=== PATIENT | female | born 1980 | race African-American/Black ===

== ENCOUNTER 2016-11-15 22:19 | Emergency (ER) | payer OTHER ==
[~2016-11-15 22:19] MED LIST: CARAFATE1 GM PO; CIPRO500 MG PO; FLA500 PO; LAC PO; LOPERAMIDE2 MG PO; MOTRIN800 MG PO; PRILOSEC20 MG PO; ZOF4 PO
[2016-11-15 22:50] LABS: BASOPHIL % 0.4 % (0-2); PLATELET COUNT 400 x10^3mcL (130-400)
[2016-11-15 22:56] LABS: RED CELL DISTRIBUTION WIDTH 19.6 % (11.5-14.5)
[2016-11-15 23:02] LABS: CALCIUM 8.9 mg/dL (8.5-10.1); CARBON DIOXIDE 24.7 mmol/L (21-32); CHLORIDE SERUM 103 mmol/L (98-107); CREATININE SERUM 0.8 mg/dL (0.6-1.0); GFR1 > 60 mL/min; GLUCOSE SERUM 92 mg/dL (74-106); POTASSIUM SERUM 3.3 mmol/L (3.5-5.1); SODIUM SERUM 137 mmol/L (136-145)
[2016-11-15 23:05] LABS: ALBUMIN 3.8 g/dL (3.4-5.0); ALKALINE PHOSPHATASE 97 U/L (46-116); ALT/SGPT 25 U/L (14-59); AMYLASE 83 U/L (25-115); AST/SGOT 26 U/L (15-37); BILIRUBIN TOTAL 1.1 mg/dL (0.20-1.00); LIPASE 158 IU/L (73-393)
[2016-11-16 00:54] VITALS: BP 170/95
== END 2016-11-16 00:54 | disposition home or self-care (01) ==
LOC: ED 22:19
PROVIDERS: Emergency Medicine
DX: R10.30 Lower abdominal pain, unspecified (principal)
CPT/HCPCS: 83880; J1885

== ENCOUNTER 2017-07-19 14:06 | Emergency (ER) | payer OTHER ==
[~2017-07-19] VITALS: Ht 165.1 cm; Wt 109.5 kg
[2017-07-19 14:16] VITALS: Ht 165.1 cm; Wt 109.5 kg
[2017-07-19 16:03] VITALS: BP 120/76
== END 2017-07-19 16:03 | disposition home or self-care (01) ==
LOC: ED 14:06
DX: R09.89 Other specified symptoms and signs involving the circulatory and respiratory systems (principal)

== ENCOUNTER 2017-08-29 20:42 | Emergency (ER) | payer OTHER ==
[~2017-08-29] VITALS: Ht 165.1 cm; Wt 109.8 kg
[2017-08-29 21:12] VITALS: Ht 165.1 cm; Wt 109.8 kg
[2017-08-30 00:12] LABS: BASOPHIL % 0.3 % (0-2); PLATELET COUNT 373 x10^3mcL (130-400)
[2017-08-30 00:24] LABS: CALCIUM 8.6 mg/dL (8.5-10.1); CARBON DIOXIDE 24.2 mmol/L (21-32); CHLORIDE SERUM 102 mmol/L (98-107); CREATININE SERUM 0.8 mg/dL (0.6-1.0); GFR1 > 60 mL/min; GLUCOSE SERUM 104 mg/dL (74-106); SODIUM SERUM 141 mmol/L (136-145)
[2017-08-30 00:29] LABS: ALKALINE PHOSPHATASE 101 U/L (46-116); ALT/SGPT 23 U/L (14-59); AMYLASE 101 U/L (25-115); AST/SGOT 20 U/L (15-37); BILIRUBIN TOTAL 0.6 mg/dL (0.20-1.00); LIPASE 111 IU/L (73-393); TOTAL PROTEIN, SERUM 8.6 g/dL (6.4-8.2)
[2017-08-30 02:33] VITALS: BP 140/76
== END 2017-08-30 02:33 | disposition home or self-care (01) ==
LOC: ED 20:42
PROVIDERS: Specialist
DX: K29.70 Gastritis, unspecified, without bleeding (principal); K44.9 Diaphragmatic hernia without obstruction or gangrene
CPT/HCPCS: 83880; J2405; J3010; J3490; J7030

== ENCOUNTER 2018-07-16 23:34 | Emergency (ER) | payer OTHER ==
[~2018-07-16] VITALS: Ht 162.6 cm; Wt 108.4 kg
[2018-07-16 23:41] VITALS: Ht 162.6 cm; Wt 108.4 kg
[2018-07-17 01:40] VITALS: BP 114/76
== END 2018-07-17 01:35 | disposition home or self-care (01) ==
LOC: ED 23:34
DX: S29.012A Strain of muscle and tendon of back wall of thorax, initial encounter (principal); Z98.890 Other specified postprocedural states; X58.XXXA Exposure to other specified factors, initial encounter; Y93.89 Activity, other specified; Y92.89 Other specified places as the place of occurrence of the external cause; Y99.8 Other external cause status
CPT/HCPCS: J3010; Q0162

== ENCOUNTER 2019-01-20 18:41 | Emergency (ER) | payer OTHER ==
[~2019-01-20] VITALS: Ht 162.6 cm; Wt 86.2 kg
[2019-01-20 18:47] VITALS: Ht 162.6 cm; Wt 86.2 kg
[2019-01-20 19:47] LABS: BASOPHIL % 0.2 % (0-2)
[2019-01-20 19:52] LABS: PLATELET COUNT 552 x10^3mcL (130-400); RED CELL DISTRIBUTION WIDTH 19.1 % (11.5-14.5)
[2019-01-20 21:56] VITALS: BP 131/80
== END 2019-01-20 21:56 | disposition home or self-care (01) ==
LOC: ED 18:41
PROVIDERS: Emergency Medicine
DX: N93.9 Abnormal uterine and vaginal bleeding, unspecified (principal); N94.6 Dysmenorrhea, unspecified; I10 Essential (primary) hypertension; Z98.890 Other specified postprocedural states
CPT/HCPCS: 36415; J1885

== ENCOUNTER 2019-06-03 09:09 | Inpatient (IN) | payer OTHER ==
[~2019-06-03] VITALS: Ht 165.1 cm; Wt 113.9 kg
--- NOTE | 2019-06-03 09:30 | NUR ---
PT C/O EPIGASTRIC PAIN SINCE 0200 STS THAT THE PAIN IS AN CONSTANT "ACHE". PT STS THAT SHE HAS NAUSE AND DID SPIT UP BLOOD. PER PT STS THAT SHE HAS DONE THIS BEFORE DUE TO HER CHOLITIS. PT DENIES ANY DYSURIA. +BOWEL SOUNDS ALL 4 QUAD. PT DENIES ANY TEMP/BODY ACHES. PT PLACED ON CM. RESP E/U. WILL CONTINUE TO MONITOR. PT AAOX4.
--- NOTE | 2019-06-03 09:41 | NUR ---
PT DENIES ANY CHEST PAIN AT THIS TIME.
--- NOTE | 2019-06-03 09:45 | NUR ---
EKG IN PROGRESS.
--- NOTE | 2019-06-03 10:25 | NUR ---
LAB AT BEDSIDE. MEDICATED PER EMAR.
[2019-06-03 10:45] LABS: BASOPHIL % 0.3 % (0-2)
[2019-06-03 10:48] LABS: RED CELL DISTRIBUTION WIDTH 16.8 % (11.5-14.5)
[2019-06-03 10:51] LABS: PLATELET COUNT 503 x10^3mcL (130-400)
[2019-06-03 10:54] LABS: microscopic required? YES; urine erythrocyte 2+ (NEGATIVE)
[2019-06-03] MEDS ORDERED: ATENOLOL25 MG PO (12:11)
--- NOTE | 2019-06-03 12:50 | NUR ---
GAVE REPORT TO KIZZY RODRIGUEZ TO ASSUME CARE OF PT. PER KIZZY PLEASE WAIT 20 TO CLEAN ROOM IT WAS AN ISOLATION ROOM, WILL CALL WHEN READY.
--- NOTE | 2019-06-03 13:00 | NUR ---
PT VOMITED APPROX 50ML OF YELOW GREEM EMESIS. PT PROVIDED NEW EMESIS BAG. VSS. RESP E/U. WILL CONTINUE TO MONITOR.
[2019-06-03 13:18] LABS: CALCIUM 8.2 mg/dL (8.5-10.1); CARBON DIOXIDE 24.8 mmol/L (21-32); CHLORIDE SERUM 102 mmol/L (98-107); CREATININE SERUM 0.7 mg/dL (0.6-1.0); GFR1 > 60 mL/min; GLUCOSE SERUM 92 mg/dL (74-106); POTASSIUM SERUM 3.6 mmol/L (3.5-5.1); SODIUM SERUM 138 mmol/L (136-145)
[2019-06-03 13:22] LABS: ALBUMIN 3.6 g/dL (3.4-5.0); ALKALINE PHOSPHATASE 109 U/L (46-116); ALT/SGPT 14 U/L (14-59); AST/SGOT 9 U/L (15-37); BILIRUBIN TOTAL 0.87 mg/dL (0.20-1.00); TOTAL PROTEIN, SERUM 7.7 g/dL (6.4-8.2); TRIGLYCERIDES 75 mg/dL (<150)
[2019-06-03 13:24] LABS: CHOLESTEROL 132 mg/dL (<200); CHOLESTEROL/HDL RATIO 2.1; HDL CHOLESTEROL 63 mg/dL (40-60); LIPASE 2303 IU/L (73-393)
--- NOTE | 2019-06-03 13:38 | NUR ---
CONTACTED KIZZY TO SEE IF ROOM WAS READY FOR THE PT. KIZZY STS THAT THEY ARE STILL CLEANING THE ROOM AND WILL CALL BACK WHEN READY.
--- NOTE | 2019-06-03 13:49 | NUR ---
PT STS THAT SHE HAS NO NASUEA AT THIS TIME AND IS "FEELING BETTER". VSS. RESP E/U WILL CONTINUE TO MONITOR.
--- NOTE | 2019-06-03 14:05 | NUR ---
RECEIVED PT FROM ED [employer] [employer], CAME IN DUE TO NAUSEA, VOMITING AND ABDOMINAL PAIN X1 DAY. AAOX4. DENIES HEADACHE/DIZZINESS. ABLE TO FOLLOW COMMANDS. NO SOB NOTED, LUNG SOUNDS CTA. DENIES CHEST PAIN/PRESSURE. STATED THAT SHE HAS 8/10 UPPER ABDOMINAL PAIN DESCRIBED CONTRACTIONS AND INTERMITTENT. DENIES NAUSEA AT THIS TIME. BOWEL SOUNDS ACTIVE. ABDOMEN IS ROUND AND SOFT. VOIDS. IV SITE PATENT AND INTACT. SIDE RAILS UPX2. CALL LIGHT ON REACH. PRIMARY NURSE KIZZY AT BEDSIDE FOR CONTINUITY OF CARE
[2019-06-03 14:22] VITALS: BP 162/94
[2019-06-03 14:29] VITALS: Ht 165.1 cm; Wt 113.9 kg
--- NOTE | 2019-06-03 16:50 | NUR ---
EGD CONSENT SIGNED AND PT AGREEABLE TO EGD. CONSENT IN CHART. PT COMPLAINING OF SPASM LIKE PAIN TO ABD. WILL MEDICATE ACCORDING TO EMAR.
[2019-06-03 18:20] VITALS: BP 168/97
--- NOTE | 2019-06-03 18:30 | NUR ---
PT BLOOD PRESSURE 168/97, RECHECKED BLOOD PRESSURE WITH PT SITTING AT EDGE OF BED AND IS 178/108. WILL MEDICATE ACCORDING TO EMAR.
[2019-06-03] MEDS ORDERED: AMLODIPINE BESY10 M2 PO (18:35)
--- NOTE | 2019-06-03 19:30 | NUR ---
ENDORSED TO NURSE HOOKER
--- NOTE | 2019-06-03 19:41 | NUR ---
RECEIVED PT FROM PREVIOUS SHIFT. PT A/OX4. DENIES SOB ON RA. C/O "TOLERABLE" 5/10 PAIN TO ABD. STATES SHE DOES NOT WANT ANY PAIN MEDS AT THIS TIME. IV PATENT AND INFUSING LR AT 125ML/HR WITH NO S/S OF INFILTRATION. CALL LIGHT WITHIN REACH, BED IN LOW POSITION. WILL CONTINUE TO MONITOR.
[2019-06-03 21:25] VITALS: BP 164/93
--- NOTE | 2019-06-04 01:01 | NUR ---
PT RESTING IN NO ACUTE DISTRESS. RR EVEN AND UNLABORED. CALL LIGHT WITHIN REACH, BED IN LOW POSITION. WILL CONTINUE TO MONITOR.
[2019-06-04 05:18] VITALS: BP 153/90
[2019-06-04 06:58] LABS: BILIRUBIN DIRECT 0.32 mg/dL (0.0-0.2); BILIRUBIN TOTAL 1.02 mg/dL (0.20-1.00); TOTAL PROTEIN, SERUM 7.4 g/dL (6.4-8.2)
[2019-06-04 07:20] LABS: ALBUMIN 3.3 g/dL (3.4-5.0)
--- NOTE | 2019-06-04 07:30 | NUR ---
RECIEVED REPORT FROM NOC NURSE. PATIENT CURRENTLY AWAKE ALERT AND ORIENTED AND RESTING IN BED. LR INFUSING TO LAC IV AT 125/HOUR. NO REPORT OF PAIN AT THIS TIME. SAFETY PRECAUTIONS IN PLACE. BED IN THE LOW POSITION. CALL LIGHT WITHIN REACH. WILL CONTINUE TO MONITOR.
[2019-06-04 08:23] VITALS: BP 144/84
--- NOTE | 2019-06-04 13:54 | NUR ---
RECIEVED PATIENT FROM SURGERY. PATIENT AWAKE AND ORIENTED. RESPIRATIONS EVEN AND UNLABORD, REGULAR RATE. CURRENTLY SITTING UP IN BED TO EAT HER FULL LIQUID MEAL. NO REPORT OF PAIN AT THIS TIME. WILL CONTINUE TO MONITOR.
[2019-06-04 14:24] LABS: BASOPHIL % 0.6 % (0-2)
[2019-06-04 14:36] LABS: PLATELET COUNT 426 x10^3mcL (130-400); RED CELL DISTRIBUTION WIDTH 16.5 % (11.5-14.5)
[2019-06-04 14:41] LABS: CALCIUM 8.3 mg/dL (8.5-10.1); CHLORIDE SERUM 104 mmol/L (98-107); CREATININE SERUM 0.6 mg/dL (0.6-1.0); GFR1 > 60 mL/min; GLUCOSE SERUM 95 mg/dL (74-106); POTASSIUM SERUM 3.6 mmol/L (3.5-5.1); SODIUM SERUM 139 mmol/L (136-145)
--- NOTE | 2019-06-04 15:17 | NUR ---
PATIENT CURRENTLY AWAKE AND IN BED. NO REPORT OF PAIN AT THIS TIME. MOTHER AT BEDSIDE VISITING WITH PATIENT.
[2019-06-04 16:32] VITALS: BP 119/80
[2019-06-04 17:50] VITALS: BP 119/80
--- NOTE | 2019-06-04 18:16 | NUR ---
CALL MADE TO DR. ADAMSON, EXPLAINED THAT PATIENT REFUSED TO GO HOME TODAY. DR. ADAMSON NOTED THAT IS FINE. PATIENT CURRENTLY STATED THAT SHE VOMITED A LITTLE. KITCHED CALLED TO BRING PATIENT CLEAR BROTH IN ORDER TO SLOWLY TRANSITION PATIENT FROM NPO DIET.
--- NOTE | 2019-06-04 19:34 | NUR ---
PATIENT STATED THAT SHE IS STILL VOMITING. PATIENT REQUESTING NAUSEA MEDICATION. NOC NURSE STATED SHE WOULD PROVIDE THE NAUSEA MED. BED IN THE LOW POSITION. CALL LIGHT WITHIN REACH. CARE ENDORSED TO [facility] NURSE.
--- NOTE | 2019-06-04 20:02 | NUR ---
PT C/O NAUSEA AND CLAIMED VOMITED X1 JUST SALIVA, NO DISTRESS V/S STABLE, ZOFRAN 4MG IVP GIVEN PER PRN ORDER, PT ALSO STATED THAT SHE HAS ABDL PAIN 6/10 PER ASSESSMENT OFFERED TYLENOL BUT SHE STATED IT DIDNT WORK WANTED TO HAVE DILAUDID, EXPLAINED THAT MEDS WAS DC'D, PT REFUSED TO TAKE TYLENOL AND WANTED MD TO BE CALLED, PAGED DR PEÑALOZA, AWAITING FOR CALL BACK, SHIFT ASSESSMENT DONE, PT ON FULL LIQ DIET, IV ACCESS LAC PATENT NON INFIL, WILL CONT TO MONITOR.
[2019-06-04 20:29] VITALS: BP 136/69
--- NOTE | 2019-06-04 21:36 | NUR ---
REGULATORY COMPLIANCE ENGINEER FOR DR COBURN CALLED BACK, DR GAMBINO WITH ORDER FOR NORCO PRN FOR PAIN, MEDS GIVEN ORDERED PRN.
--- NOTE | 2019-06-05 01:00 | NUR ---
PT SLEEPING NO S/SX OF PAIN OR DISCOMFORTS NO DISTRESS, CHECKED AT INTERVALS.
[2019-06-05 05:18] VITALS: BP 123/57
--- NOTE | 2019-06-05 06:14 | NUR ---
NO SIGNIFICANT CHANGE DURING THE SHIFT NEEDS MET.
--- NOTE | 2019-06-05 07:34 | NUR ---
RECIEVED REPORT FROM [facility] NURSE. PATIENT CURRENTLY RESTING IN BED. RESPIRATIONS EVEN AND UNLABRED. IV TO LAC IS SALINE LOCKED. PATIENT STILL ON FULL LIQUID DIET. BED IN LOW POSITION. SAFETY PRECAUTIONS IN PLACE. WILL CONTINUE TO MONITOR.
[2019-06-05 08:54] VITALS: BP 143/83
--- NOTE | 2019-06-05 10:00 | NUR ---
PATIENT COMPLAINING OF PAIN IN THE ABD. PATIENT MEDICATED PER EMAR. WILL CONTINUE TO MONITOR PATIENT'S PAIN. PATIENT REPORTS THAT PAIN FEELS INTERMITTENT AND THROBBING.
[2019-06-05 13:28] VITALS: BP 143/83
--- NOTE | 2019-06-05 15:12 | NUR ---
DISCHARGE INSTRUCTIONS AND PRESCRIPTION GIVEN, PATIENT AND FAMILY AT BEDSIDE VERBALIZED UNDERSTANDING. IV DISCONTINUED, CATH REMOVED INTACT. ALL QUESTIONS AND CONCERNS ADDRESSED. NO SIGNS OF DISTRESS. PATIENT LEAVING WITH ALL BELONGINGS. NO SIGNS OF DISTRESS. PATIENT LEAVING TO LOBBY ACCOMPANIED BY ORACLE SPECIALIST.
== END 2019-06-05 15:13 | disposition home or self-care (01) | DRG 241 ==
LOC: ED 09:09 → MU 12:03
PROVIDERS: Internal Medicine Gastroenterology; Specialist; ADMIT Internal Medicine Pulmonary Disease
PROC: 0DB68ZX Excision of Stomach, Via Natural or Artificial Opening Endoscopic, Diagnostic (ICD-10-PCS; principal; 2019-06-04 13:30)
PROC: 0W3P8ZZ Control Bleeding in Gastrointestinal Tract, Via Natural or Artificial Opening Endoscopic (ICD-10-PCS; 2019-06-04 13:30)
DX: K25.4 Chronic or unspecified gastric ulcer with hemorrhage (principal); K85.90 Acute pancreatitis without necrosis or infection, unspecified; D62 Acute posthemorrhagic anemia; E66.01 Morbid (severe) obesity due to excess calories; F12.10 Cannabis abuse, uncomplicated; I10 Essential (primary) hypertension; F17.210 Nicotine dependence, cigarettes, uncomplicated; K44.9 Diaphragmatic hernia without obstruction or gangrene; K21.0 Gastro-esophageal reflux disease with esophagitis; I51.89 Other ill-defined heart diseases; Z68.41 Body mass index [BMI] 40.0-44.9, adult; Z79.899 Other long term (current) drug therapy
CPT/HCPCS: 43235; C9113; G0378; J1170; J1200; J1610; J1885; J2250; J2310; J2405; J3010; J3490; J7030; J7120; Q0092

== ENCOUNTER 2019-09-08 11:47 | Emergency (ER) | payer OTHER ==
[~2019-09-08] VITALS: Ht 165.1 cm; Wt 110.7 kg
[~2019-09-08 11:47] MED LIST changes: +AMLODIPINE BESY10 M2 PO; +ATENOLOL25 MG PO
[2019-09-08 11:53] VITALS: Ht 165.1 cm; Wt 110.7 kg
[2019-09-08 16:25] VITALS: BP 131/79
== END 2019-09-08 16:25 | disposition home or self-care (01) ==
LOC: ED 11:47
DX: J98.01 Acute bronchospasm (principal); I10 Essential (primary) hypertension
CPT/HCPCS: J7512; J7613; J7644

== ENCOUNTER 2019-09-18 23:18 | Emergency (ER) | payer OTHER ==
[~2019-09-18] VITALS: Ht 165.1 cm; Wt 110.2 kg
[2019-09-18 23:29] VITALS: BP 175/104; Ht 165.1 cm; Wt 110.2 kg
== END 2019-09-19 01:26 | disposition home or self-care (01) ==
LOC: ED 23:18
DX: J06.9 Acute upper respiratory infection, unspecified (principal); Z98.890 Other specified postprocedural states
CPT/HCPCS: 87804; J1885

== ENCOUNTER 2020-07-31 07:47 | Emergency (ER) | payer OTHER ==
[~2020-07-31] VITALS: Ht 165.1 cm; Wt 111.6 kg
[2020-07-31 07:50] VITALS: Ht 165.1 cm; Wt 111.6 kg
[2020-07-31 09:50] VITALS: BP 160/198
== END 2020-07-31 09:50 | disposition home or self-care (01) ==
LOC: ED 07:47
DX: S83.8X1A Sprain of other specified parts of right knee, initial encounter (principal); J45.909 Unspecified asthma, uncomplicated; I10 Essential (primary) hypertension; Z98.890 Other specified postprocedural states; X58.XXXA Exposure to other specified factors, initial encounter; Y93.89 Activity, other specified; Y92.89 Other specified places as the place of occurrence of the external cause; Y99.8 Other external cause status